=== PATIENT | female | born 2000 ===

== ENCOUNTER 2019-10-25 20:53 | Inpatient (IN) | payer OTHER ==
[~2019-10-25] VITALS: Ht 157.5 cm; Wt 89.4 kg
[2019-10-25] MEDS ORDERED: PRENATAL TABLE1 EAC2 PO (21:38)
[2019-11-01] MEDS ORDERED: CEFUROXIME250 MG PO (11:27)
== END 2019-11-01 11:52 | disposition home or self-care (01) | DRG 833 ==
LOC: OBS/DEL 20:53 → OB/GYN 22:10 → LDR 22:10 → OB/GYN 10-27 09:33
PROVIDERS: ADMIT Obstetrics & Gynecology; ATTEND Obstetrics & Gynecology
PROC: 4A1HXFZ Monitoring of Products of Conception, Cardiac Rhythm, External Approach (ICD-10-PCS; principal; 2019-10-25)
PROC: 8E0ZXY6 Isolation (ICD-10-PCS; 2019-10-27)
DX: O23.02 Infections of kidney in pregnancy, second trimester (principal); Z3A.25 25 weeks gestation of pregnancy; B96.1 Klebsiella pneumoniae [K. pneumoniae] as the cause of diseases classified elsewhere; Z20.828 Contact with and (suspected) exposure to other viral communicable diseases

== ENCOUNTER 2019-12-08 18:02 | Outpatient (CLI) | payer OTHER ==
[~2019-12-08 18:02] MED LIST: CEFUROXIME250 MG PO; PRENATAL TABLE1 EAC2 PO
== END 2019-12-09 09:56 | disposition home or self-care (01) ==
LOC: OBS/DEL 18:02
PROVIDERS: ATTEND Obstetrics & Gynecology
DX: O76 Abnormality in fetal heart rate and rhythm complicating labor and delivery (principal)

== ENCOUNTER 2020-01-20 16:54 | Inpatient (IN) | payer OTHER ==
[~2020-01-20] VITALS: Ht 157.5 cm; Wt 2.3 kg
[2020-01-20] MEDS ORDERED: PRENATAL TABLE1 EAC1 PO (18:55)
[2020-01-24] MEDS ORDERED: NAPR500T14 PO (14:26)
[2020-01-24] MEDS ORDERED: CODE1TAB37 PO (14:27)
== END 2020-01-24 15:02 | disposition home or self-care (01) | DRG 788 ==
LOC: LDR 16:54 → OB/GYN 01-21 22:23
PROVIDERS: ADMIT Obstetrics & Gynecology; ATTEND Obstetrics & Gynecology
PROC: 4A1HXFZ Monitoring of Products of Conception, Cardiac Rhythm, External Approach (ICD-10-PCS; 2020-01-21)
PROC: 3E0P7VZ Introduction of Hormone into Female Reproductive, Via Natural or Artificial Opening (ICD-10-PCS; 2020-01-21)
PROC: 3E033VJ Introduction of Other Hormone into Peripheral Vein, Percutaneous Approach (ICD-10-PCS; 2020-01-21)
PROC: 10D00Z1 Extraction of Products of Conception, Low, Open Approach (ICD-10-PCS; principal; 2020-01-21 18:00)
DX: O62.1 Secondary uterine inertia (principal); Z3A.38 38 weeks gestation of pregnancy; Z37.0 Single live birth; Z20.828 Contact with and (suspected) exposure to other viral communicable diseases